=== PATIENT | female | born 1970 | race African-American/Black ===

== ENCOUNTER 2021-07-17 12:02 | Observation (INO) | payer SELFPAY ==
[~2021-07-17] VITALS: Ht 162.6 cm; Wt 42.0 kg
[~2021-07-17 12:02] MED LIST: AMOXICILLIN 8751 TAB PO; PHOSPHA 250 NEU1 TAB PO; PROTONIX 40MG T40 MG PO
[2021-07-17 12:48] LABS: BASO % 0.2 % (0.0-2.0); EOS # 0.1 K/mm3 (0.0-0.7); EOS % 0.4 % (0.0-4.0); GRAN # 14.6 K/mm3 (1.4-6.5); GRAN % 88.4 % (42.2-75.2); LYMPH % 5.8 % (20.0-51.0); MEAN CELL VOLUME 76 fl (80.0-100.0); MEAN CORPUSCULAR HGB CONC 30 g/dl (33.0-37.0); MEAN PLATELET VOLUME 8.8 fl (7.4-10.4); MONO # 0.8 K/mm3 (0.1-0.6); MONO % 4.8 % (1.7-9.3); PLATELET COUNT 746 K/mm3 (130-400); RED BLOOD COUNT 4.19 M/mm3 (4.10-5.30); REDCELL DISTRIBUTION WIDTH-CV 18.8 % (11.5-14.5)
[2021-07-17 12:50] LABS: HEMATOCRIT 31.7 % (37.0-47.0); HEMOGLOBIN 9.5 g/dl (12.5-16.0); MEAN CORPUSCULAR HEMOGLOBIN 23 pg (27-31)
[2021-07-17 13:07] LABS: ALBUMIN 2.6 gm/dL (3.5-5.0); ALKALINE PHOSPHATASE 83 U/L (40-150); ANION GAP 11 mmol/L (7-16); AST,SGOT 16 U/L (5-34); BILIRUBIN,TOTAL 0.3 mg/dL (0.2-1.2); BLOOD UREA NITROGEN 11 mg/dL (10-20); CALCIUM 9.8 mg/dL (8.4-10.2); CARBON DIOXIDE 27 mmol/L (22-29); CHLORIDE 97 mmol/L (98-107); CREATININE, serum 0.82 mg/dL (0.57-1.11); GLUCOSE 203 mg/dL (70-99); LIPASE 14 U/L (8-78); POTASSIUM 3.6 mmol/L (3.5-4.5); SODIUM 135 mmol/L (136-145); TOTAL PROTEIN 9.5 gm/dL (6.2-8.1)
[2021-07-17 13:08] LABS: ALANINE AMINOTRANSFERASE < 6 U/L (0-55)
[2021-07-17 13:12] LABS: TROPONIN-I < 0.010 ng/mL (0.00-0.033)
[2021-07-17 16:00] VITALS: BP 100/64; PULSE 117; TEMP 98.2
[2021-07-17] MEDS ORDERED: SUPPORT 240 ML240 ML PO (17:00)
--- NOTE | 2021-07-17 17:25 | NUR ---
PATIENT ADMITED INTO ROOM 345 FROM ER WITH C/O SOA & COPIOUS AMOUNTS OF THICK YELLOW PHLEGM. PATIENT HAS A NEW DIAGNOSIS OF ESOPHAGUS CANCER. CT SHOWED INCREASE IN MASS AND COMPLETE CONSOLIDATION IN RIGHT MIDDLE & LOWER LUNG MCCARTNEY WITH FLUID AND DEBRIS. CT ALSO NOTED EROSION INTO RLL. 02 SATS IN THE MID TO UPPER 90'S ON RA. NOTED TACHYCARDIA IN THE 120'S. ALL OTHER VSS. PATIENT HAS AGREED TO DNR AND HOSPICE CARE, SEE PALLIATIVE CARE CONSULT. PEG TUBE TO LEFT ABD. PATIENT GIVES HERSELF BOLUS FEEDINGS & MEDS IN PEG BUT STILL TAKES IN ORAL LIQUIDS. IV FLUIDS INFUSING INTO LEFT FORARM. HEAD TO TOE ASSESSMENT COMPLETED. BC PENDING. ORIENTED TO ROOM. CALL LIGHT IN REACH.
[2021-07-17 19:44] VITALS: BP 98/57; PULSE 113; TEMP 98.6
--- NOTE | 2021-07-17 20:00 | NUR ---
Pt. sitting up in bed. Pt. is A&OX3, assessment complete. IV to lt. forearm patent, IV fluids infusing per orders. Pt. reports pain at a 3 on pain scale after pain meds. Pt. denies further needs, call light within reach.
[2021-07-18 00:24] VITALS: BP 97/59; PULSE 119; TEMP 99.3
[2021-07-18 04:08] VITALS: BP 94/53; PULSE 120; TEMP 99
[2021-07-18 07:29] VITALS: BP 97/53; PULSE 112; TEMP 99.3
--- NOTE | 2021-07-18 10:29 | NUR ---
Received report from third shift lieutenant. Patient alert and oriented x4. VSS. Assessment performed, AM meds administered. Patient complains of pain 10\10. Requests pain medication. Patient resting in bed with call light near.
[2021-07-18 11:25] VITALS: BP 85/51; PULSE 116; TEMP 98.7
--- NOTE | 2021-07-18 11:36 | NUR ---
MOISES completed intake with patient. 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 [place] that her children are on their way from that location due to her recent clincal needs. Nba Chi is her son [phone], daughter Aruna [phone] . Patient states that she does not utilize any DME and is independent with ADL's. Does not have a preferred PCP nor pharmacy. Physician provided patient will obtain hospice consult and patient stated that her choice would be to go to the [facility]. Documentation sent to facility. MOISES will continue to follow. DC plan: [facility]
--- NOTE | 2021-07-18 12:56 | NUR ---
PATIENT CONTINUES TO REQUEST ATIVAN AND IV MORPHINE ON A SCHEDULED BASIS TO KEEP PAIN AT A TOLERABLE LEVEL. VITAL SIGNS HAVE BEEN STABLE, PATIENT STATES PAIN IS AT A LEVEL THAT IS TOLERABLE WITH THIS SCHEDULE. WILL CONTINUE TO MONITOR.
--- NOTE | 2021-07-18 14:04 | NUR ---
MOISES spoke with staff member at [facility] in store demonstrator. Staff member stated that she will be up to the hospital on this day to speak to patient in regards to benefits and services. SW will continue to follow.
[2021-07-18 16:00] VITALS: BP 94/55; PULSE 113; TEMP 99.4
--- NOTE | 2021-07-18 16:32 | NUR ---
Yulia rodriguez [facility] visited with patient today. They are accepting this patient when she is discharged from a medical stand point. Patient is accepting of hospice care and is compliant with plan of care.
--- NOTE | 2021-07-18 19:00 | NUR ---
Pt. sitting up in bed. Pt. is A&OX3, assessment complete. IV to lt. forearm patent, IV fluids infusing per orders. Pt. reports pain at a 10 on pain scal, gave pain meds. Pt. denies further needs, call light within reach.
[2021-07-18 19:05] VITALS: BP 100/55; PULSE 87; TEMP 99.1
[2021-07-19 00:09] VITALS: BP 95/59; PULSE 142; TEMP 102.2
[2021-07-19 03:25] VITALS: BP 93/54; PULSE 38; TEMP 98.4
[2021-07-19 07:44] VITALS: BP 119/52; PULSE 123; TEMP 98.4
--- NOTE | 2021-07-19 09:32 | NUR ---
Jennifer, Palliative Care RN, notified MOISES that she followed up with Guillermina at [facility]. Guillermina states that their manager social did follow up with the patient yesterday. She states that they would require a Medicaid application, with the patient being self pay. MOISES consulted Janelle, Financial Counselor, about the application and asked that it be completed today.
--- NOTE | 2021-07-19 09:38 | NUR ---
Met with patient at bedside. She is ready to head to [facility] at any time. We discussed use of her feeding tube and medications as well as visitors and comfort items. She is waiting for an official discharge date and time to notify her children. I have been talking with Guillermina at [facility] and she requeted updated from the weekend and to start the medicaid application with the patient. Notified SW and the financial counselor of the request from [facility].
--- NOTE | 2021-07-19 10:54 | NUR ---
MOISES contacted Guillermina at [facility] to follow up. Guillermina confirms that they need the Medicaid application started before they can take her. Guillermina states that the patient needs to apply for Medicaid [employer] or [employer]. Guillermina states that acceptance is also pending on if their senior medical technologist will follow the patient while there. She is waiting to hear back from their senior medical technologist. MOISES updated Janelle with financial counseling.
--- NOTE | 2021-07-19 13:00 | NUR ---
PATIENT HAS DENIED TUBE FEEDINGS THUS FAR THIS SHIFT. INTAKING ORAL FLUIDS WELL, NO SOLIDS. TAKES MEDS VIA PEG TUBE, PEG TUB FUNCTIONING WELL. PENDING HOSPICE PLACEMENT AT THIS TIME. COMFORT MEASURES IN PLACE.
--- NOTE | 2021-07-19 19:28 | NUR ---
PT MEDICATED WITH MORPHINE 4MG IVP. PT ASKING FOR ATIVAN PER PEG TUBE WELL. IV SITE TO LFA WITH FLUIDS INFUSING WITHOUT REDNESS OR SWELLING. PT COUGHING UP THICK PHLEGM AND "SLOUGHING" FROM HER ESOPHAGUS. REFUSES JEVITY TUBE FEED. ATE 75% OF HER DINNER TRAY.
--- NOTE | 2021-07-19 19:41 | NUR ---
NORCO AND ATIVAN GIVEN PER PEG TUBE. PT HAS HOB ELEVATED FOR COMFORT. KPAD TO BACK.
--- NOTE | 2021-07-19 21:41 | NUR ---
MEDICATED WITH MORPHINE 4MG IVP AND ATIVAN PER PEG. SBA TO BATHROOM, VOIDS AND BACK TO BED, GAIT SLOW AND STEADY. REPORTS PAIN IS TO HER BACK AND THROAT/ESOPHAGUS.
--- NOTE | 2021-07-20 01:33 | NUR ---
MEDICATED WITH MORPHINE 4MG IVP, ATIVAN 0.5MG PER TUBE AND NORCO PER PEG TUBE.
--- NOTE | 2021-07-20 04:20 | NUR ---
PT WANTING TO TAKE SHOWER, IV WRAPPED, ASSISTED TO SHOWER.
--- NOTE | 2021-07-20 05:00 | NUR ---
PT BACK TO BED. MEDICATED WITH MORPHINE 4MG IVP AND ATIVAN 0.5MG PER PEG.
--- NOTE | 2021-07-20 09:14 | NUR ---
Randell with [facility] emailed me asking some clinical questions, response sent and phone call made to Guillermina at [facility] as well for clarification. [facility] medical assistant secretary will follow the patient but they request our financial assitant complete the disability application here as they have no one available to completed it once the patient is at [facility]. Notified SW and Financial Counselor.
--- NOTE | 2021-07-20 10:12 | NUR ---
Janelle, with financial counseling, notified that she completed the Medicaid application with the patient, but inquired if [facility] could complete the SS disability with her. MOISES contacted Guillermina at [facility]. Guillermina requested that we complete the disability application with her while here. They would like confirmation of the Medicaid and disability application before they can take the patient. The earliest they can take the patient is tomorrow.
--- NOTE | 2021-07-20 10:29 | NUR ---
Initial visit; Patient a former personnel. Jojo is very sweet and interesting. She has received a difficult diagnosis and is bound [facility]. She and Casino Slot Supervisor discussed how nice the facility is and how Casino Slot Supervisor will help her however she needs. Her children are on their way and she is very excited about seeing them. Jojo is very Spiritual and appreciated the prayer from [employer]. Casino [employer] Supervisor will follow up.
--- NOTE | 2021-07-20 16:16 | NUR ---
Janelle, with Financial Counseling, states that the Social Security Disability line was down today, so she was unable to complete the application. She plans to contact them tomorrow.
--- NOTE | 2021-07-20 16:25 | NUR ---
Received call from Guillermina with [facility]. She tentatively accepted the patient, RALPH pending for tomorrow; car pick up driver time 1500 for arrival time 1530. Requested financial counselor completed needed paperwork in the morning to facilitate discharge and notified of requested transport time to coordinate that.
--- NOTE | 2021-07-20 19:13 | NUR ---
PT SITTING UP IN BED, FAMILY IS @ BEDSIDE. IVF INFUSING. PT HAS BEEN ADMINISTERED PAIN MEDICATIONS ET ATIVAN REGULARLY Q 2HRS THROUGHOUT SHIFT. PO MEDS ARE GIVEN CRUSHED THROUGH PEG TUBE. PT HAS BEEN GIVEN JEVITY TUBE FEEDINGS X3 THROUGHOUT DAY. RESIDUALS HAVE BEEN <90 ML. SKIN AROUND PEG TUBE HAS BEEN CLEANED OF SMALL AMOUNT OF YELLOW MUSCOSY DRAINAGE. PT COUGHS FREQUENTLY WITH LARGE AMOUNTS OF SPUTUM. PT HAS BEEN UP TO USE BR, AMBULATES WITH SBA.
--- NOTE | 2021-07-20 20:15 | NUR ---
Pt. sitting up in bed. Pt. family at bedside. Pt. is A&OX3, assessment complete. IV to lt. forearm patent, IV fluids infusing per orders. Pt. would like to take a shower this evening. IV disconnected from pump. and covered. Pt.'s daughter going to help pt. in the shower. Pt. reports pain at a 7 on pain scale, will give pain meds per orders. Pt. also requests ativan. Will give per orders. Pt. denies further needs, call light within reach.
--- NOTE | 2021-07-21 08:55 | NUR ---
PT UP TO BR VOIDED AND RETURNED TO BED. PRN ATIVAN AND MSO4 PROVIDED PER REQUEST. JEVITY NUTRITION PROVIDED PT REQUESTING TO GIVEN HERSELF.
[2021-07-21] MEDS ORDERED: SYSTANE 0.4%-0.1 SOL OU (09:46)
[2021-07-21] MEDS ORDERED: TRANSDERM-0.5 MG/21 TD (09:46)
[2021-07-21] MEDS ORDERED: ZOFRAN ODT4 MG PO (09:46)
[2021-07-21] MEDS ORDERED: DULCOLAX S10 MG/SUPP RC (09:46)
[2021-07-21] MEDS ORDERED: ATIVAN 1MG T1 MG/TAB PO (09:47)
[2021-07-21] MEDS ORDERED: ROXANOL 20MG20 MG/ML SL (09:47)
--- NOTE | 2021-07-21 10:20 | NUR ---
Follow-up visit; Patient thanked Veterinary Practice Manager for stopping momentarily to check on her and letting her know that Veterinary Practice Manager will return before she is transferred to [facility].
--- NOTE | 2021-07-21 15:20 | NUR ---
MOISES met with the patient to review discharge plan and how we are just waiting on the disability application to be submitted for her to go to [facility] today. The patient verbalized understanding and is agreement to the plan. She states that her children are in town and will be coming up to the hospital today. MOISES contacted the patient's son, Nba (ph#[phone]), to review the above with him. Nba is in agreement to the plan. He states that him and his sister will be up to the hospital soon and they can transport the patient to [facility]. The Medicaid and Disability application were submitted and confirmation fax was received. MOISES notified and faxed the confirmation receipt and application to Randell at [facility]. Randell states that they are still able to accept the patient today. MOISES updated the clinical team, the RN, the patient, and her family. The patient is to discharge today, 07/21, to the [facility]. Transportation to be provided by private vehicle, via the patient's family. No additional needs at this time.
--- NOTE | 2021-07-21 15:22 | NUR ---
PT ACCEPTED TO [facility]. IV DISCONTINUED PER ORDERS. PT TOLERATED WELL. PT LEFT UNIT PER WHEEL CHAIR WITH STAFF.
--- NOTE | 2021-07-21 15:45 | NUR ---
Follow-up visit with Jojo and her three Children prior to her transfer to [facility]. Visit with patient and family included visit and prayer along with talking about Jojo's transfer and then her meeting with God and how wonderful it will be. Children were included in the conversation. May the [place] [employer] [place] be with them.
== END 2021-07-21 15:24 | disposition hospice, inpatient (51) ==
LOC: COL.ER 12:02 → SURG 16:05 → COL.ER 16:46 → SDCO 16:46 → SURG 07-19 16:38 → SDCO 07-19 17:18 → SURG 07-19 17:18
PROVIDERS: Emergency Medicine; ADMIT Family Medicine
DX: R13.10 Dysphagia, unspecified (principal); C15.9 Malignant neoplasm of esophagus, unspecified; E46 Unspecified protein-calorie malnutrition; R63.4 Abnormal weight loss; D72.829 Elevated white blood cell count, unspecified; I49.5 Sick sinus syndrome; E87.1 Hypo-osmolality and hyponatremia; D50.9 Iron deficiency anemia, unspecified; D69.6 Thrombocytopenia, unspecified; R62.7 Adult failure to thrive; E86.0 Dehydration; E83.52 Hypercalcemia; N85.8 Other specified noninflammatory disorders of uterus; Z93.1 Gastrostomy status; Z87.19 Personal history of other diseases of the digestive system; Z79.899 Other long term (current) drug therapy
CPT/HCPCS: 99233-AI; 99239; G0378; J0295; J0692; J2060; J2270; J7030; J7120; Q9967